=== PATIENT | female | born 1950 | race Asian ===

== ENCOUNTER 2024-05-12 14:15 | Outpatient (CLI) | payer BC ==
--- NOTE | 2024-05-13 10:02 | XRAY Report ---
PROCEDURE: Ankle 3+V RT INDICATIONS: SPRAIN OF UNSPECIFIED LIGAMENT OF RT ANKLE TECHNIQUE: 2 views of the ankle were acquired. COMPARISON: None. FINDINGS: Bones: No acute fractures or dislocations. Ankle mortise is normally aligned. No suspicious bony l esions. Remote fracture of the navicular bone. Soft tissues: Small tibiotalar joint effusion. Achilles tendon appears normal. IMPRESSION: No displaced fractures. Small joint effusion. Internal derangement not excluded. Reviewed by: Nicola Hurley MD on 05/13/2024 10:00 AM PDT Approved by: Nicola Hurley MD on 05/13/2024 10:00 AM PDT Station ID: [id number]
== END 2024-05-12 14:16 | disposition home or self-care (01) ==
LOC: DI 14:15
PROVIDERS: ATTEND Physician Assistant Medical
DX: S93.401A Sprain of unspecified ligament of right ankle, initial encounter (principal); M25.471 Effusion, right ankle